=== PATIENT | female | born 1955 | race Caucasian/White ===

== ENCOUNTER 2021-08-05 15:54 | Outpatient (CLI) | payer MEDICARE, OTHER ==
--- NOTE | 2021-08-05 18:29 | XRAY Report ---
PROCEDURE: Foot 3 View RT INDICATIONS: PAIN EDEMA 2ND MP JOINT R FOOT TECHNIQUE: 3 views of the foot were acquired. COMPARISON: None FINDINGS: Bones: No fractures or dislocations. No suspicious bony lesions. Mild hallux valgus alignment and medial bunion. Mild first MTP and diffuse interphalangeal joint space narrowing with periarticular os teophyte formation. Soft tissues: No tibiotalar joint effusion. Achilles tendon appears normal. IMPRESSION: Mild hallux valgus alignment and medial bunion. 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 Reviewed by: ARCELIA Damon on 08/05/2021 6:27 PM PST Approved by: Bhavesh Blair MD on 08/05/2021 6:27 PM PST Station ID: [id number]
== END 2021-08-05 15:55 | disposition home or self-care (01) ==
LOC: DI 15:54
PROVIDERS: ATTEND Podiatrist
DX: M20.11 Hallux valgus (acquired), right foot (principal); M21.611 Bunion of right foot; M19.071 Primary osteoarthritis, right ankle and foot